=== PATIENT | male | born 1995 | race Two or more races ===

== ENCOUNTER 2022-06-09 20:22 | Emergency (ER) | payer OTHER ==
[~2022-06-09] VITALS: Ht 172.7 cm; Wt 67.8 kg
[2022-06-10 08:00] VITALS: BP 124/71
[2022-06-10] MEDS ORDERED: IBUP800T26 PO (08:03)
[2022-06-10] MEDS ORDERED: HYDR-4902 PO (08:03)
== END 2022-06-10 08:15 | disposition home or self-care (01) ==
LOC: ER 20:22
DX: M54.59 Other low back pain (principal)
CPT/HCPCS: 72070; 72100; 73030

== ENCOUNTER 2022-06-16 17:50 | Emergency (ER) | payer OTHER ==
[~2022-06-16] VITALS: Ht 172.7 cm; Wt 64.3 kg
[~2022-06-16 17:50] MED LIST: HYDR-4902 PO; IBUP800T26 PO
[2022-06-16] MEDS ORDERED: methylPREDNISolone SOD SUCC 125 MG/2 ML VL IM ONE (19:00)
[2022-06-16] MEDS ORDERED: KETOROLAC TROMETH 30 MG/ML 1ML VIAL IM ONE (19:00)
[2022-06-16] MEDS ORDERED: CYCL-839 PO (19:36)
[2022-06-16] MEDS ORDERED: DICL75TA2 PO (19:36)
[2022-06-16] MEDS ORDERED: HYDR-4798 PO (19:55)
[2022-06-16 20:00] VITALS: BP 134/78
== END 2022-06-16 20:00 | disposition home or self-care (01) ==
LOC: ER 17:53
DX: S33.5XXA Sprain of ligaments of lumbar spine, initial encounter (principal); M79.18 Myalgia, other site; W01.0XXA Fall on same level from slipping, tripping and stumbling without subsequent striking against object, initial encounter; Y93.89 Activity, other specified; Y92.89 Other specified places as the place of occurrence of the external cause; Y99.8 Other external cause status
CPT/HCPCS: 96372; 99284; J1885; J2930

== ENCOUNTER 2022-06-22 13:15 | Emergency (ER) | payer MEDICAID, OTHER ==
[~2022-06-22] VITALS: Ht 172.7 cm; Wt 68.0 kg
[~2022-06-22 13:15] MED LIST changes: +CYCL-839 PO; +DICL75TA2 PO; +HYDR-4798 PO
[2022-06-23] MEDS ORDERED: MORPHINE SULFATE 4 MG/ML SYR/VIAL IM ONE (01:30)
[2022-06-23] MEDS ORDERED: DexAMETHasone SOD PHOS 10MG/1ML VIAL INJ IM ONE (01:30)
[2022-06-23 03:55] VITALS: BP 120/90
== END 2022-06-23 03:57 | disposition home or self-care (01) ==
LOC: ER 13:15
DX: G89.29 Other chronic pain (principal); M54.50 Low back pain, unspecified; Z79.1 Long term (current) use of non-steroidal anti-inflammatories (NSAID); Z79.899 Other long term (current) drug therapy
CPT/HCPCS: 96372; 99284; J1100; J2270

== ENCOUNTER 2022-06-28 18:00 | Emergency (ER) | payer MEDICAID ==
[~2022-06-28] VITALS: Ht 172.7 cm; Wt 60.0 kg
[2022-06-28 18:30] VITALS: BP 123/75
[2022-06-28] MEDS ORDERED: HYDROcodone-ACET 10/325MG TAB PO ONE (19:15)
== END 2022-06-28 20:23 | disposition home or self-care (01) ==
LOC: ER 18:00
DX: M54.50 Low back pain, unspecified (principal); G89.29 Other chronic pain